=== PATIENT | female | born 1990 | race Hispanic/Latino ===

== ENCOUNTER 2016-12-21 13:59 | Inpatient (IN) | payer OTHER ==
[2016-12-21 14:37] VITALS: BMI 44.5
[2016-12-21] MEDS ORDERED: Ondansetron HCl/PF 4 MG/2 ML Vial IVP PRN (14:50)
[2016-12-21] MEDS ORDERED: Promethazine HCl 25 MG/ML VIAL IM PRN (14:50)
[2016-12-21] MEDS: Labetalol HCl 100 MG/20 ML VIAL SLOW IVP PRN ×2 (15:04→15:55)
[2016-12-21] MEDS ORDERED: Magnesium Sulfate 20 GM/WATER 500 ML BAG IVPB SCH (15:15)
[2016-12-21 15:20] LABS: Hematocrit 40.1 % (36.0-47.0); Mean Platelet Volume 9.3 fL (7.4-10.4); White Blood Cell (WBC) Count 10.1 thou/uL (4.8-10.8)
[2016-12-21 15:23] LABS: ALT (SGPT) 14 U/L (8-55); AST (SGOT) 21 U/L (5-34); Alkaline Phosphatase 179 U/L (40-150); Anion Gap 12 mmol/L (10-20); BUN (Urea Nitrogen) 10 mg/dL (7.0-18.7); Bilirubin, Total 0.2 mg/dL (0.2-1.2); Calc. Creatinine Clearance 258 mL/min (70-130); Calcium 8.9 mg/dL (7.8-10.44); Carbon Dioxide 20 mmol/L (22-29); Chloride 109 mmol/L (98-107); Estimated GFR-MDRD Greater than 90; Protein, Total 5.8 g/dL (6.0-8.3)
[2016-12-21] MEDS ORDERED: NIFEdipine XL 30 MG TAB PO SCH (15:30)
--- NOTE | 2016-12-21 16:25 | ULT ---
OBSTETRICAL ULTRASOUND UMBILICAL ARTERIAL DOPPLER ULTRASOUND BIOPHYSICAL PROFILE: DATE: 12/21/16. COMPARISON: 09/17/16. HISTORY: -induced hypertension. TECHNIQUE: Multiplanar, hudson scale, sonographic imaging of a gravid uterus obtained. Umbilical artery is asses sed with color flow and spectral analysis. FINDINGS: A single intrauterine gestation is present with a vertex presentation. Cervical length is approxima tely 4.2 cm. heart rate is 158 b.p.m. Placenta is located anteriorly with no evidence for previa or abruption. Umbilical arterial Doppler is performed, demonstrating a resistive index of 0.6 and a systolic/diast olic ratio of 2.5. Peak systolic velocity is 45.7 cm/s. Amniotic fluid index is estimated at 15.1%. anatomy is not well assessed on this examination. Intracranial contents are not well assessed secondary to head position. Positioning of the spine limits assessment as well. urinary bladder appears grossly unremarkable. A 3-vessel cord is noted. BIOMETRY: BPD 8.1 cm, 32 weeks 5 days HC 30 cm, 33 weeks 2 days AC 29.3 cm, 33 weeks 2 days FL 6.4 cm, 33 weeks 0 days Average based on ultrasound 33 weeks 1 day. Estimated date of delivery of deliver is 02/07/17. Est imated weight is 2128 gm +/- 315 gm. BIOPHYSICAL PROFILE: The performing fabrication technician reports a 2 out of 2 score for tone, breathing, movemen t, and amniotic fluid volume. IMPRESSION: 1. Single intrauterine gestation as detailed above. anatomy assessment is limited. 2. Umbilical arterial Doppler as above. 3. Eight out of 8 biophysical profile. POS: [facility]
[2016-12-21] MEDS: Magnesium Sulfate 20 gm/500 ml 20 GM/500 ML BAG IVPB SCH (16:43)
[2016-12-21] MEDS: Betamet Acet/Betamet Na Ph 30 MG/5 ML VIAL IM SCH (16:54)
[2016-12-21] MEDS ORDERED: Acetaminophen 500 MG TAB PO SCH ×2 (17:15→21:15)
[2016-12-21] MEDS: Labetalol HCl 100 MG/20 ML VIAL SLOW IVP SCH (17:55)
[2016-12-21] MEDS ORDERED: FLU VACC QS2017-18 36 mo. & older 0.5 ML SYRINGE IM ONE (21:00)
[2016-12-22] MEDS: Magnesium Sulfate 20 gm/500 ml 20 GM/500 ML BAG IVPB SCH ×3 (00:56→21:53)
[2016-12-22 08:08] LABS: #Lymphocytes 1.9 thou/uL (1.20-3.40); #Monocytes 0.2 thou/uL (0.11-0.59); %Basophils 0.3 % (0.0-1.0); %Eosinophils 0.1 % (0.0-10.0); %Lymphocytes 17.4 % (21.0-51.0); %Monocytes 1.4 % (0.0-10.0); Hematocrit 39.4 % (36.0-47.0); Mean Platelet Volume 9.4 fL (7.4-10.4); Red Blood Cell (RBC) Count 4.32 mill/uL (4.20-5.40); White Blood Cell (WBC) Count 11.1 thou/uL (4.8-10.8)
--- NOTE | 2016-12-22 08:09 | PRG ---
DATE OF SERVICE: 12/22/2016 HISTORY OF PRESENT ILLNESS: The patient is a 26-year-old G1, P0 female admitted for chronic hyperte nsion, superimposed preeclampsia at 33 weeks and a day. The patient was placed on magnesium and giv en multiple doses of IV medication in an attempt to bring her blood pressures down from the 190s. O xavier the course of the evening and morning, blood pressures have primarily in the mild range with iso lated severe ranged pressures. She has required a dose of hydralazine this morning at about 6 and s melissa then about 10 hours previous. The patient this morning denies any headaches, any shortness of breath, any right upper quadrant tenderness. PHYSICAL EXAMINATION: VITAL SIGNS: Blood pressures again ranging 140s to 150s with isolated severe range pressures into t he 160s, diastolic pressures are in the 60s-80s, heart rate in the low 100s, temperature is 97.6. GENERAL: She appears to be in no acute distress. She is alert and oriented, and cooperative and pl easant to interact with. HEAD: Normocephalic and atraumatic. LUNGS: Clear to auscultation bilaterally. HEART: Has regular rate and rhythm. ABDOMEN: Soft and gravid. EXTREMITIES: Nontender. She has minimal reflexes. Urine output has been consistently 40-75 mL an hour. ASSESSMENT AND PLAN: The patient is 26-year-old female with intrauterine at 33 weeks with chronic hypertension, superimposed preeclampsia. The patient will continue on magnesium today with IV hydralazine p.r.n. She is also on Procardia-XL 30 mg daily. She is due for her second dose of betamethasone for lung maturity today and will continue magnesium until tomorrow at which time we will be discontinued and we will continue to manage with the patient inhouse with hope for mariposasujey wiley outside 1 week. She has repeat labs this morning that are pending. Dr. Balderas, her primary OB wi ll be resuming care today and will be happy to assist in any way we can.
[2016-12-22 08:23] LABS: ALT (SGPT) 11 U/L (8-55); AST (SGOT) 19 U/L (5-34); Alkaline Phosphatase 172 U/L (40-150); Anion Gap 14 mmol/L (10-20); BUN (Urea Nitrogen) 10 mg/dL (7.0-18.7); Bilirubin, Total 0.3 mg/dL (0.2-1.2); Calc. Creatinine Clearance 249 mL/min (70-130); Calcium 8.2 mg/dL (7.8-10.44); Carbon Dioxide 17 mmol/L (22-29); Chloride 104 mmol/L (98-107); Estimated GFR-MDRD Greater than 90; Globulin 3.4 g/dL (2.4-3.5); Protein, Total 6.4 g/dL (6.0-8.3)
[2016-12-22] MEDS: NIFEdipine XL 30 MG TAB PO SCH (09:11)
--- NOTE | 2016-12-22 10:09 | CON ---
DATE OF CONSULTATION: 12/21/2016 REFERRING PHYSICIAN: Dr. Sukh Balderas. CHIEF COMPLAINT: Elevated blood pressures. HISTORY OF PRESENT ILLNESS: The patient is a 26-year-old G1, P0 female who was sent from clinic to labor and delivery after having blood pressures in the 160s to 170s systolic and was sent here for evaluation. The patient upon presentation denied any symptomatology including headache, right upper quadrant tenderness, shortness of breath, cramping, bleeding, and leakage of fluid. She denies any recent illness, fever, fall, headache, chest pain, shortness of breath, nausea, vomiting, diarrhea, constipation, any hip problems, knee problems, muscle weakness, any urinary urgency. The patient does have a probable history of chronic hypertension and had some elevated pressures early on in the and per the patient had reported elevated pressures prior with another provider. PAST MEDICAL HISTORY: Chronic hypertension. PAST SURGICAL HISTORY: None. ALLERGIES: No known drug allergies. SOCIAL HISTORY: Denies drug, alcohol or tobacco use. OB LABORATORY DATA: Blood type O positive with a negative antibody screen. She is rubella immune, HIV is negative. Hepatitis B surface antigen is negative. One hour glucose 108. GC chlamydia negative. REVIEW OF SYSTEMS: Per HPI. PHYSICAL EXAMINATION: VITAL SIGNS: Blood pressures initially on presentation were in the 170s to 200s /110s. Patient received a total of 120 mg of IV labetalol and 5 mg of IV hydralazine and 30 mg of p.o. Procardia before pressures stabilized after which the patient is only need another dose of Apresoline this morning since her admission. GENERAL: On initial presentation, patient was alert and oriented, cooperative and pleasant to interact with. HEAD: Normocephalic, atraumatic. LUNGS: Clear to auscultation bilaterally. HEART: Has regular rate and rhythm. ABDOMEN: Soft, gravid. EXTREMITIES: Nontender. She does have some edema, but normal reflexes and no clonus. LABORATORY DATA: heart tracing performed for elevated blood pressure showed baseline in the 130s with moderate long-term variability, positive accelerations, no decelerations, and no contractions on the tocometer. Lab work was significant only for proteinuria and a protein to creatinine ratio of about 2. ultrasound was performed and the fetus was noted to be in vertex presentation with amniotic ROSALIE of 15 and an 8/8 biophysical profile and estimated weight of 2128 grams, which is appropriate for gestational age. ASSESSMENT AND PLAN: The patient is a 26-year-old female with intrauterine at 33 weeks and chronic hypertension with superimposed preeclampsia based on severe range blood pressures and new onset of significant proteinuria. The patient has been placed on magnesium for seizure prophylaxis and has been given betamethasone for lung maturity and has required multiple doses of IV blood pressure medication over the course of the evening. Patient is now stabilized on Procardia-XL 30 mg daily and as needed IV hydralazine on a rare occasion since stabilization. Her primary OB, Dr. Sukh Balderas will be resuming care of her patient, Ms. Paniagua. We will be available for assistance as needed. Would recommend to continue magnesium through steroid benefit which would put her in the hospital day 3, 24 hours after the second dose of betamethasone and inhouse management if possible for a week before delivery. [facility]
[2016-12-22] MEDS ORDERED: Acetaminophen 500 MG TAB PO SCH (10:15)
[2016-12-22] MEDS: Lactated Ringer's 1,000 ML IV SCH (15:31)
[2016-12-22] MEDS: Betamet Acet/Betamet Na Ph 30 MG/5 ML VIAL IM SCH (17:10)
[2016-12-22 17:22] LABS: Collection Duration 24 hrs
[2016-12-22 17:56] LABS: Protein - 24 Hr 1197 mg/24 hr (Less than 300); Protein, Urine 57 mg/dL (1-14)
[2016-12-22] MEDS: Acetaminophen 500 MG TAB PO PRN (18:19)
[2016-12-22] MEDS: Labetalol HCl 100 MG/20 ML VIAL SLOW IVP SCH (21:51)
[2016-12-23] MEDS: Lactated Ringer's 1,000 ML IV SCH ×2 (04:37→18:21)
[2016-12-23] MEDS: NIFEdipine XL 30 MG TAB PO SCH (08:07)
[2016-12-23] MEDS: Magnesium Sulfate 20 gm/500 ml 20 GM/500 ML BAG IVPB SCH ×2 (08:07→18:21)
[2016-12-23] MEDS: Labetalol HCl 100 MG TAB PO SCH (08:46)
[2016-12-23 09:27] LABS: #Monocytes 0.5 thou/uL (0.11-0.59); #Neutrophils 7.6 thou/uL (1.40-6.50); %Basophils 0.2 % (0.0-1.0); %Eosinophils 0.3 % (0.0-10.0); %Lymphocytes 19.7 % (21.0-51.0); %Monocytes 4.5 % (0.0-10.0); Hematocrit 37.6 % (36.0-47.0); Mean Platelet Volume 8.9 fL (7.4-10.4); Red Blood Cell (RBC) Count 4.03 mill/uL (4.20-5.40); White Blood Cell (WBC) Count 10.1 thou/uL (4.8-10.8)
[2016-12-23 09:42] LABS: ALT (SGPT) 16 U/L (8-55); AST (SGOT) 25 U/L (5-34); Alkaline Phosphatase 151 U/L (40-150); Anion Gap 15 mmol/L (10-20); BUN (Urea Nitrogen) 14 mg/dL (7.0-18.7); Bilirubin, Total 0.3 mg/dL (0.2-1.2); Calc. Creatinine Clearance 249 mL/min (70-130); Calcium 7.5 mg/dL (7.8-10.44); Carbon Dioxide 17 mmol/L (22-29); Chloride 106 mmol/L (98-107); Estimated GFR-MDRD Greater than 90; Globulin 3.2 g/dL (2.4-3.5); Protein, Total 5.9 g/dL (6.0-8.3)
[2016-12-23] MEDS: Acetaminophen 500 MG TAB PO PRN (12:42)
[2016-12-23] MEDS ORDERED: Furosemide 20 MG/2 ML VIAL SLOW IVP SCH (20:00)
[2016-12-23] MEDS: Labetalol HCl 100 MG/20 ML VIAL SLOW IVP SCH (20:00)
[2016-12-23] MEDS ORDERED: Fentanyl 4 mcg/Marc 0.1% Cadd 100 ML ONE (20:48)
[2016-12-23] MEDS: LR 500 ML/Oxytocin 10 units 500 ML IVPB SCH (23:32)
[2016-12-24] MEDS: Labetalol HCl 100 MG TAB PO SCH ×3 (00:32→20:46)
[2016-12-24] MEDS: Labetalol HCl 100 MG/20 ML VIAL SLOW IVP SCH ×6 (01:51→14:31)
[2016-12-24] MEDS ORDERED: Hydrocerin (Eucerin) Cream 120 gm Jar TOP PRN (03:01)
[2016-12-24] MEDS ORDERED: Ondansetron HCl/PF 4 MG/2 ML Vial IVP PRN ×4 (03:01→11:37)
[2016-12-24] MEDS ORDERED: Lactated Ringer's 500 ML IV PRN (03:01)
[2016-12-24] MEDS ORDERED: Promethazine HCl 25 MG/ML VIAL IM PRN ×3 (03:01→11:37)
[2016-12-24] MEDS ORDERED: Naloxone HCl 0.4 mg/ml Vial IVP PRN ×6 (03:01→11:37)
[2016-12-24] MEDS ORDERED: ePHEDrine/0.9% NaCl/PF SYRINGE 50 mg/10 ml SLOW IVP PRN (03:01)
[2016-12-24] MEDS ORDERED: diphenhydrAMINE HCl 50 MG/ML 1 ML VIAL IVP PRN ×3 (03:01→11:37)
[2016-12-24] MEDS ORDERED: Acetaminophen 325 MG TAB PO PRN (03:01)
[2016-12-24] MEDS ORDERED: Fentanyl 4mcg/Marcaine 0.1% Cassette 100 ML EPIDURAL SCH (03:15)
[2016-12-24] MEDS ORDERED: Communication Order-Pharmacy FS SCH ×4 (03:15→11:45)
[2016-12-24] MEDS: Magnesium Sulfate 20 gm/500 ml 20 GM/500 ML BAG IVPB SCH ×3 (04:30→23:39)
[2016-12-24] MEDS ORDERED: Naloxone HCl 0.4 mg/ml Vial IV PRN (08:24)
[2016-12-24] MEDS ORDERED: Meperidine HCl/PF 25 MG/ML VIAL SLOW IVP PRN (08:24)
[2016-12-24] MEDS ORDERED: Eucerin (Mineral Oil/Petrolatum,White) 30 gm Jar TOP PRN ×2 (08:24→11:37)
[2016-12-24] MEDS ORDERED: HYDROmorphone 2 MG/ML VIAL SLOW IVP PRN (08:24)
[2016-12-24] MEDS ORDERED: Promethazine HCl 25 MG SUPP PR PRN ×2 (08:24→11:37)
[2016-12-24] MEDS ORDERED: Ketorolac Tromethamine 30 MG/ML VIAL IVP SCH (08:30)
[2016-12-24] MEDS ORDERED: Ketorolac Tromethamine 30 MG/ML VIAL ONE (08:49)
[2016-12-24] MEDS ORDERED: Ondansetron HCl/PF 4 MG/2 ML Vial ONE (08:49)
[2016-12-24] MEDS ORDERED: Oxytocin 10 UNITS/ML VIAL ONE (08:49)
[2016-12-24] MEDS ORDERED: Lidocaine 2% PF 10 ML AMP (For Epidural Use) ONE (08:49)
[2016-12-24] MEDS ORDERED: ePHEDrine/0.9% NaCl/PF SYRINGE 50 mg/10 ml ONE (08:49)
[2016-12-24] MEDS ORDERED: Dexamethasone 4 mg/ml Vial ONE (08:49)
[2016-12-24] MEDS ORDERED: PHENYLEPHRINE-NS 100 MCG/ML 10 ML SYRINGE ONE (08:54)
--- NOTE | 2016-12-24 08:55 | PRG ---
DATE OF SERVICE: 12/24/2016 TIME OF EVALUATION: 08:30. PREOP NOTE In brief, this is a patient of Dr. Balderas who was consulted on approximately 10 minutes ago for a concern of presenting cord through the amniotic bag. In brief , this is a patient who has received steroids for lung maturity due to her EGA of about 33 weeks. She has chronic hypertension on antihypertensive medications normally, but she is now being induced for superimposed preeclampsia with elevated blood pressures requiring repetitive intrapartum antihypertensive agents. She is now 2 cm dilated. I was made aware this morning that at Dr. Balderas's exam, a palpable umbilical cord is felt through the intact amniotic sac transcervically. Once again, she is 2 cm. This is a risk for cord prolapse with either spontaneous or artificial rupture of membranes. As the cord is presenting, and if she has severe hypertension remote from delivery requiring antihypertensive medications, our decision was to proceed with primary . The station is cephalic on ultrasound, but the baby is in an extremely nonengaged/high station at about -4 to -5. Due to the risk of cord accident with umbilical cord presenting at the cervix, we have decided for primary . Dr. Yun with Anesthesiology is aware. We are waiting OR availability. NICU notification. Preop DX: 1. Cord presenting 2. Severe Preeclampsia remote from delivery 3. Chronic hypertension 4. 33 week gestation MTDD
[2016-12-24] MEDS ORDERED: Bupivacaine 0.25% HCL 30 ML VIAL ONE (09:50)
[2016-12-24 10:01] LABS: CO2 Tension (PaCO2) 56.7 mmHg (44.0-56.0)
--- NOTE | 2016-12-24 10:46 | OP ---
DATE OF PROCEDURE: 12/24/2016 PRIMARY SECTION NOTE PREOPERATIVE DIAGNOSES: 1. Chronic hypertension with superimposed preeclampsia. 2. Umbilical cord as presenting part. 3. 33 week gestation. POSTOPERATIVE DIAGNOSES: 1. Chronic hypertension with superimposed preeclampsia. 2. Status post primary low transverse via Pfannenstiel. PROCEDURE: Primary low transverse section via Pfannenstiel skin incision. SURGEON: Joby Portillo M.D. THIRD MATE: Dr. Sukh Balderas ANESTHESIA: Labor epidural. ANTIBIOTICS: Ancef given preoperatively. FINDINGS: 1. A female, cephalic presentation, which was non-engaged. Weight was 3 pounds 5 ounces. The umbilical cord was the presenting part by the baby's head. There was a nuchal cord x1 as well. There was clear fluid at rupture of membranes. 2. Hemostasis post-procedure. 3. Normal uterus, tubes, and ovaries bilaterally. ESTIMATED BLOOD LOSS: Less than or equal to 600 mL. IV FLUIDS: Approximately 400 mL crystalloid. URINE OUTPUT: By Ramirez, clear urine (please see Anesthesia record for volume). COMPLICATIONS: None. LABORATORY SPECIMENS: Laboratory specimens sent include an umbilical arterial cord gas and the plac enta. PEOPLE IN ATTENDANCE: NICU staff. DISPOSITION: To recovery in good and stable condition. TECHNIQUE: After proper informed consent was again reviewed with the patient, she was transported t Labor and Delivery operating room where she was placed in the supine position per protocol. Labor epidural had been dosed adequately. Abdomen was prepped and draped in the usual sterile fashion. A Pfannenstiel skin incision was made with the scalpel and Bovie cautery was used to dissect the sub cutaneous tissue down to the level of the fascia. Overlying fatty tissue was cleared off the fascia and the fascia was entered in a transverse manner using Bovie cautery on cut mode. Rectus muscles were off the fascia both superiorly and inferiorly and off the midline using Garcia scissors . Care was taken to avoid underlying structures. Rectus muscles were out laterally from the midline, peritoneum was entered by blunt dissection. An Jai (large O ring) was placed into t wound for visualization of the lower uterine segment. A low transverse hysterotomy was made with out complication. Amniotomy revealed clear fluid. The baby was delivered in a cephalic presentatio n. Due to the non-engaged status, fundal pressure and maneuvering of the child transabdominal ly was necessary to bring the child out of the hysterotomy. The baby was vigorous at . Cord w as clamped, transected, and the baby was handed to the NICU team who was present for delivery. Apga rs were 8 and 9. Placenta was gently massaged out of the uterine cavity and it was intact. A dry l aparotomy sponge was used to curettage the uterine cavity signifying the lack of any retained produc ts of conception. The hysterotomy was closed in a two-layer closure using #1 Monocryl. The first l jered was in a running locking fashion. Copious irrigation was done after uterine closure (uterus wa s left in situ for closure). After confirming all counts were correct, rectus muscles were reapprox imated in in the midline with a loose running suture of 3-0 plain gut. The fascia was closed with 0 PDS suture in a running nonlocking fashion with 2 sutures being used and being tied in the midline. Copious irrigation was done of the subcutaneous tissue and as it was greater than 2 cm it was clos ed with 3-0 plain gut. Datil were placed on the wound/skin edges without complication.
[2016-12-24] MEDS ORDERED: Meperidine HCl/PF 25 MG/ML VIAL ONE (10:57)
[2016-12-24] MEDS ORDERED: HYDROcodone/Acetaminophen 5/325 mg Tablet PO PRN (11:09)
[2016-12-24] MEDS: Furosemide 20 MG/2 ML VIAL SLOW IVP SCH ×3 (11:33→23:39)
[2016-12-24] MEDS ORDERED: Bupivacaine 0.25% 10 ML VIAL EPIDURAL PRN (11:37)
[2016-12-24] MEDS ORDERED: Zolpidem Tartrate 5 MG TAB PO PRN (11:37)
[2016-12-24] MEDS ORDERED: diphenhydrAMINE HCl 25 MG CAP PO PRN (11:37)
[2016-12-24] MEDS ORDERED: diphenhydrAMINE HCl 50 MG/ML 1 ML VIAL IM PRN (11:37)
[2016-12-24] MEDS ORDERED: Fentanyl 5 MCG/ 0.75% Bupivacaine 250 ML CADD EPIDURAL SCH (11:45)
[2016-12-24] MEDS: NIFEdipine XL 30 MG TAB PO SCH (12:12)
[2016-12-24] MEDS ORDERED: Labetalol HCl 100 MG/20 ML VIAL ONE (14:27)
[2016-12-24] MEDS ORDERED: Metoprolol Tartrate 5 MG/5 ML VIAL IVP PRN (14:30)
--- NOTE | 2016-12-24 14:37 | PRG ---
DATE OF SERVICE: 12/24/2016 TIME: 1404 /POSTOP HYPERTENSION NOTE In brief, I have just reviewed the patient's blood pressures with Bridget, the patient's nurse. The patient has adequate pain control as she is resting in recovery. However, her blood pressure since 1332, has remained severely elevated with a range of 189/77 to a high of 197/80. Pulse is in the 80 s. Spot O2 check on room air is 94. The patient has received hydralazine alternating with labetalo l. The last dose of hydralazine (5 mg) was at 1351. Labetalol has been given in sequential dosages from 40 mg, 80 mg to 120 mg. The last dose of labetalol was at 1320. I have just ordered a repeat dose of 40 mg due to this blood pressure elevation. She has also received oral labetalol and oral nifedipine. Nifedipine was last given at 12:12 at 30 mg orally. The patient has also been given La six with the next dose being at 1800. We will continue to follow the patient's blood pressures at t his time and if this does not result in improvement, we may consider IV labetalol for hypertension t hat is emergent.
--- NOTE | 2016-12-24 16:34 | PRG ---
ANESTHESIA PHONE CONSULTATION DATE OF SERVICE: 12/24/2016 TIME: 14:18 In brief, I just talked with Dr. Yun as an informal consultation on Ms. Paniagua. Dr. Yun was the anesthesiologist who assisted with a earlier today. I have reviewed with him the blood pressures. He suggested adding IV metoprolol 5 mg every 20 minutes for 3 dosages, the labetalol due to the blood pressure. He agrees that her blood pressure control is not adequate. On this multidrug medical therapy, she may need nitroprusside IV for blood pressure support and transferred to the ICU. For now, we will continue to follow closely and try this metoprolol additional regimen as a PRN option. CORINNED
--- NOTE | 2016-12-24 16:38 | PRG ---
DATE OF SERVICE: 12/24/2016 ICU CONSULTATION TIME: 14:05. In brief, I just talked with Dr. Mullen, who was on-call for the ICU today. I discussed with him Sigrid Paniagua's blood pressures and the multi-medical regimen she has been on. I informed him that we have just started metoprolol as suggested by Anesthesiology. He agrees that if the blood pressure remained severely elevated despite metoprolol addition, she may need to be transferred to the ICU fo r nicardipine drip. I let him know by secured message if we plan to transfer her to the ICU for blo od pressure support on nicardipine.
--- NOTE | 2016-12-24 17:54 | PRG ---
HYPERTENSION FOLLOWUP DATE OF SERVICE: 12/24/2016 TIME OF EVALUATION: 1618 In brief, this is a patient that we have been following for severely elevated blood press ures. Previously, I had dictated that we were going to give metoprolol 5 mg IV q.20 minutes for 3 d osages at the suggestion of our anesthesiologist, Dr. Yun. However, the patient has not received any as her blood pressure has greatly reduced now. Her blood pressure at 1602 was 136/56 and at 16 18 was 141/70. I have also reviewed her bowel sign graph with Bridget, the patient's nurse. Pulse r emains stable in the 90s. I have also dictated in the last note that she was 99% on room air that a ctually must be corrected. That was on 2 liters nasal cannula. Her O2 sat currently remained at 94 %. Magnesium sulfate is still in use. She still has continuous order for Lasix for blood pressure support. We will continue to follow for now. For now, the patient is stable postoperatively from a this morning. Dr. Balderas is still following the patient as well.
[2016-12-24] MEDS ORDERED: LR / Pitocin 40 units/1000 ml 1,000 ML IV SCH (18:00)
[2016-12-24] MEDS: Ketorolac Tromethamine 30 MG/ML VIAL IVP PRN (22:26)
[2016-12-25] MEDS: Furosemide 20 MG/2 ML VIAL SLOW IVP SCH ×2 (06:24→12:46)
[2016-12-25] MEDS: Ketorolac Tromethamine 30 MG/ML VIAL IVP PRN (07:54)
[2016-12-25] MEDS: Lactated Ringer's 1,000 ML IV SCH (07:58)
[2016-12-25 08:52] LABS: #Basophils 0.1 thou/uL (0.0-0.2); #Eosinphils 0.1 thou/uL (0.0-0.7); #Lymphocytes 3.1 thou/uL (1.20-3.40); #Monocytes 0.7 thou/uL (0.11-0.59); #Neutrophils 8.7 thou/uL (1.40-6.50); %Basophils 0.5 % (0.0-1.0); %Eosinophils 0.5 % (0.0-10.0); %Lymphocytes 24.7 % (21.0-51.0); %Monocytes 5.6 % (0.0-10.0); Hematocrit 37.8 % (36.0-47.0); Mean Platelet Volume 8.3 fL (7.4-10.4); Red Blood Cell (RBC) Count 4.05 mill/uL (4.20-5.40); White Blood Cell (WBC) Count 12.7 thou/uL (4.8-10.8)
[2016-12-25 09:14] LABS: ALT (SGPT) 17 U/L (8-55); AST (SGOT) 42 U/L (5-34); Alkaline Phosphatase 143 U/L (40-150); Anion Gap 15 mmol/L (10-20); BUN (Urea Nitrogen) 21 mg/dL (7.0-18.7); Bilirubin, Total 0.4 mg/dL (0.2-1.2); Calc. Creatinine Clearance 205 mL/min (70-130); Calcium 7.2 mg/dL (7.8-10.44); Carbon Dioxide 23 mmol/L (22-29); Chloride 99 mmol/L (98-107); Estimated GFR-MDRD Greater than 90; Globulin 3.2 g/dL (2.4-3.5); Protein, Total 6.1 g/dL (6.0-8.3)
[2016-12-25] MEDS: Labetalol HCl 100 MG TAB PO SCH (09:17)
[2016-12-25] MEDS: Magnesium Sulfate 20 gm/500 ml 20 GM/500 ML BAG IVPB SCH (09:47)
[2016-12-25] MEDS: NIFEdipine XL 30 MG TAB PO SCH (09:48)
[2016-12-25] MEDS ORDERED: HYDROcodone/Acetaminophen 5/325 mg Tablet PO PRN ×2 (10:02→10:03)
[2016-12-25] MEDS ORDERED: Ibuprofen 800 MG TAB PO PRN (10:03)
[2016-12-25] MEDS ORDERED: Calcium Gluconate 4.6 MEQ in Sodium Chloride 0.9% 100 ML IVPB PRN (13:33)
[2016-12-25] MEDS ORDERED: diphenhydrAMINE HCl 25 MG CAP PO PRN (13:33)
[2016-12-25] MEDS ORDERED: Lanolin Ointment 7 GM TUBE TOP PRN (13:33)
[2016-12-25] MEDS ORDERED: Ondansetron HCl/PF 4 MG/2 ML Vial IVP PRN (13:33)
[2016-12-25] MEDS ORDERED: Bisacodyl 10 MG SUPP PR PRN (13:33)
[2016-12-25] MEDS: Ibuprofen 800 MG TAB PO SCH ×2 (14:54→21:07)
[2016-12-25] MEDS: Simethicone Chewable 80 MG TAB PO PRN (14:54)
[2016-12-25] MEDS: HYDROcodone/Acetaminophen 5/325 mg Tablet PO PRN ×3 (14:55→23:49)
[2016-12-25] MEDS ORDERED: Lidocaine 2% PF 10 ML AMP (For Epidural Use) ONE (18:33)
[2016-12-25] MEDS: Docusate (Surfak) 240 MG CAP PO SCH (19:49)
[2016-12-25] MEDS: Ferrous Sulfate 325 MG TAB PO SCH (22:11)
[2016-12-26] MEDS: HYDROcodone/Acetaminophen 5/325 mg Tablet PO PRN ×5 (04:31→21:08)
[2016-12-26] MEDS: Ibuprofen 800 MG TAB PO SCH ×3 (04:31→21:08)
[2016-12-26 04:57] LABS: Hematocrit 33.2 % (36.0-47.0); Mean Platelet Volume 9.2 fL (7.4-10.4); Red Blood Cell (RBC) Count 3.53 mill/uL (4.20-5.40); White Blood Cell (WBC) Count 13.3 thou/uL (4.8-10.8)
[2016-12-26] MEDS: Docusate (Surfak) 240 MG CAP PO SCH ×2 (08:02→21:08)
[2016-12-26] MEDS: Ferrous Sulfate 325 MG TAB PO SCH ×2 (08:02→21:07)
[2016-12-26] MEDS ORDERED: Adacel (T-DAP) 0.5 ML VIAL IM ONE (09:00)
--- NOTE | 2016-12-26 14:13 | PRG ---
DATE OF SERVICE: 12/26/2016 PRIMARY OB: Sukh Balderas M.D. HISTORY OF PRESENT ILLNESS: The patient is now postoperative day #2, status post primary for nonreassuring heart tones with umbilical cord is presenting for 33 weeks gestation and chr onic hypertension, superimposed preeclampsia and patient today reports that she is tolerating p.o. w ell, is ambulating, voiding on her own, having decreased lochia. PHYSICAL EXAMINATION: VITAL SIGNS: Vital signs have been primarily in the normal to mild range last 24 hours with the mos t recent blood pressure 147/77, temperature 98.5, pulse is 75, respiratory rate of 18, satting 98% o n room air. GENERAL: She appears to be in no acute distress. She is alert and oriented, and cooperative and pl easant to interact with. HEENT: Normocephalic, atraumatic. ABDOMEN: Soft. Incision is clean, dry, and intact. There is no induration or erythema. Abbi a re in place. EXTREMITIES: Nontender, nonedematous. LABORATORY DATA: Hemoglobin 11.2, hematocrit 33.2, platelets of 220,000. ASSESSMENT AND PLAN: The patient is now postoperative day #2, status post a primary lower transvers e section. She is status post [facility] for seizure prophylaxis the first 24 hours post-delivery . Blood pressures appear to be under good control with current oral medication of metoprolol XL 100 mg daily. We will continue postoperative care with anticipation of discharge tomorrow if her blood pressures remain under good control.
[2016-12-26] MEDS ORDERED: Sodium Chloride 0.9% 10 ML ONE ×2 (21:40→22:13)
[2016-12-26] MEDS ORDERED: Furosemide 40 MG/4 ML VIAL SLOW IVP SCH (22:00)
[2016-12-27] MEDS: Simethicone Chewable 80 MG TAB PO PRN (02:15)
[2016-12-27] MEDS: HYDROcodone/Acetaminophen 5/325 mg Tablet PO PRN ×5 (02:15→20:08)
[2016-12-27] MEDS ORDERED: Sodium Chloride 0.9% 10 ML ONE ×2 (02:31→23:10)
[2016-12-27] MEDS: Ibuprofen 800 MG TAB PO SCH ×2 (05:53→17:18)
[2016-12-27] MEDS: Docusate (Surfak) 240 MG CAP PO SCH ×2 (07:35→20:08)
--- NOTE | 2016-12-27 12:18 | PRG ---
DATE OF SERVICE: 12/27/2016 HISTORY OF PRESENT ILLNESS: The patient is postoperative day 3 status post a primary lower transver se section for malpresentation of a cord and chronic hypertension with superimposed preecla mpsia with severe features. Her course has been complicated with some difficulty with he r blood pressures. In the last 24 hours, she has received a dose of Lasix 40 mg IV and 10 mg of hyd ralazine in addition to her 100 mg daily of metoprolol XL. The patient denies any headaches, shortn ess of breath. She is ambulating well, tolerating p.o., voiding on her own, having decreased lochia . OBJECTIVE: VITAL SIGNS: Current blood pressure is 137/81, pulse of 87, temperature 98.6 with a respiratory rat e of 20. Her blood pressure high was 196/102 that resolved with 10 mg of hydralazine. She has had several blood pressures last 24 hours above 180s and the 190s. GENERAL: She appears to be in no acute distress. She is alert and oriented, and cooperative and pl easant to interact with. HEENT: Normocephalic, atraumatic. ABDOMEN: Soft. Fundus is firm with some difficult to examine by habitus. EXTREMITIES: Nontender, nonedematous. ASSESSMENT AND PLAN: The patient will continue to be monitored in-house for blood pressure control. Her primary OB has put her on 100 mg of metoprolol daily and has required multiple IV intervention s since her period began. I will monitor through the day today and anticipate discharge once she has been with mild range pressures for 24 hours.
[2016-12-27] MEDS: Ferrous Sulfate 325 MG TAB PO SCH ×2 (12:21→22:40)
[2016-12-27] MEDS ORDERED: Preparation H Ointment 28 GM TUBE TOP PRN (17:46)
[2016-12-27] MEDS ORDERED: Witch Hazel-Glycerin 1 EACH JAR TOP PRN (17:46)
[2016-12-28] MEDS: HYDROcodone/Acetaminophen 5/325 mg Tablet PO PRN ×4 (01:30→18:56)
[2016-12-28] MEDS: Docusate (Surfak) 240 MG CAP PO SCH (08:01)
[2016-12-28] MEDS: Ferrous Sulfate 325 MG TAB PO SCH (08:01)
[2016-12-28] MEDS: Lactated Ringer's 1,000 ML IV SCH (10:14)
[2016-12-28 16:11] VITALS: BP 166/98; TEMP 99.1
== END 2016-12-28 19:00 | disposition home or self-care (01) | DRG 766 ==
LOC: L&D/OP 13:59 → L&D 16:49 → OBSVTOIN 16:49 → 3SW 12-25 14:49
PROVIDERS: ADMIT Family Medicine; ATTEND Family Medicine
PROC: 0U7C7ZZ Dilation of Cervix, Via Natural or Artificial Opening (ICD-10-PCS; 2016-12-23)
PROC: 10D00Z1 Extraction of Products of Conception, Low, Open Approach (ICD-10-PCS; principal; 2016-12-24)
DX: O11.4 Pre-existing hypertension with pre-eclampsia, complicating childbirth (principal); O60.14X0 Preterm labor third trimester with preterm delivery third trimester, not applicable or unspecified; O76 Abnormality in fetal heart rate and rhythm complicating labor and delivery; O69.0XX0 Labor and delivery complicated by prolapse of cord, not applicable or unspecified; Z37.0 Single live birth; O10.02 Pre-existing essential hypertension complicating childbirth; Z23 Encounter for immunization; O69.81X0 Labor and delivery complicated by cord around neck, without compression, not applicable or unspecified; Z3A.33 33 weeks gestation of pregnancy; O11.5 Pre-existing hypertension with pre-eclampsia, complicating the puerperium; O10.03 Pre-existing essential hypertension complicating the puerperium
CPT/HCPCS: 36415; 76805; 76815; 80053; 82570; 82805; 83735; 84156; 85025; 85027; 86780; 86850; 86900; 86901; 87340; 88307; 90471; 90682; 90715; A4216; C1726; G0008; J0360; J0702; J1100; J1885; J1940; J2001; J2175; J2274; J2405; J2590; J3475; J7120; Q2036; S0020

== ENCOUNTER 2018-01-06 10:13 | Day surgery (SDC) | payer OTHER ==
[2018-01-06 10:56] VITALS: BMI 46.5
[2018-01-06 11:15] LABS: #Basophils 0.1 thou/uL (0.0-0.2); #Eosinphils 0.1 thou/uL (0.0-0.7); #Lymphocytes 2.4 thou/uL (1.20-3.40); #Monocytes 0.4 thou/uL (0.11-0.59); #Neutrophils 5.9 thou/uL (1.40-6.50); %Basophils 0.6 % (0.0-1.0); %Eosinophils 1.2 % (0.0-10.0); %Neutrophils 66.2 % (42.0-75.0); Hemoglobin 13.4 g/dL (12.0-16.0); Mean Corpuscular HGB CONC 33.8 g/dL (32.0-36.0); Mean Corpuscular Hemoglobin 31.7 pg (27.0-31.0); Mean Corpuscular Volume 93.6 fL (78.0-98.0); Mean Platelet Volume 9.8 fL (7.4-10.4); Platelet Count 222 thou/uL (130-400); RBC Distribution Width 12.5 % (11.5-14.5); Red Blood Cell (RBC) Count 4.22 mill/uL (4.20-5.40); White Blood Cell (WBC) Count 8.9 thou/uL (4.8-10.8)
[2018-01-06 11:34] LABS: ALT (SGPT) 17 U/L (8-55); AST (SGOT) 27 U/L (5-34); Albumin 2.9 g/dL (3.5-5.0); Alkaline Phosphatase 161 U/L (40-150); Anion Gap 10 mmol/L (10-20); BUN (Urea Nitrogen) 9 mg/dL (7.0-18.7); Bilirubin, Total 0.3 mg/dL (0.2-1.2); Calc. Creatinine Clearance 253 mL/min (70-130); Calcium 8.7 mg/dL (7.8-10.44); Carbon Dioxide 18 mmol/L (22-29); Chloride 110 mmol/L (98-107); Estimated GFR-MDRD Greater than 90; Globulin 3.1 g/dL (2.4-3.5); Glucose 93 mg/dL (70-105); LDH 154 U/L (125-220); Potassium 4.2 mmol/L (3.5-5.1); Sodium 134 mmol/L (136-145); Uric Acid 5.5 mg/dL (2.6-6.0)
[2018-01-06 12:10] LABS: Bilirubin Small (Negative); Blood, Urine Negative (Negative); Clarity CLOUDY (Clear); Glucose, Urine (Dipstick) Negative (Negative); Leukocyte Small (Negative); Nitrite Negative (Negative); Protein, Urine (Dipstick) 30 mg/dL (Neg-Trace); Specific Gravity, Urine 1.026 (1.002-1.036); pH, Urine 6.5 (5.0-9.0)
[2018-01-06 12:35] LABS: Creatinine, Urine 163.56 mg/dL (47-110)
--- NOTE | 2018-01-06 12:41 | PDOC.LDPN ---
Labor & Delivery Progress Note - Subjective Subjective: other (Pt sent for BP evaluation due to severe BP in clinic. Denies any preE sx besides slight LE swelling. ) - Objective Abnormal vital signs: BP normal - mild range; all other VSS General: NAD Uterine fundus: non tender FHT: category 1 [place] contractions every: no ctx Other exam findings: CV RRR. Resp unlabored. DTRs wnl. Trace edema. - Assessment (1) Chronic hypertension affecting Code(s): O10.919 - UNSP PRE-EXISTING HTN COMP , UNSP TRIMESTER Status : Acute (2) 34 weeks gestation of Code(s): Z3A.34 - 34 WEEKS GESTATION OF Status: Acute -: Serial BP are mild range. No severe range BPs. Fetus reassuring, BPP 8/8 and LINDSAY 73%. Pre-eclampsia labs are wnl. Increase Labetalol to 300 mg BID. Continue to check BPs at home. Reviewed parameters with pt. RTC next week for OB appt and sono. PreE sx reviewed with pt.
--- NOTE | 2018-01-06 15:35 | ULT ---
OBSTETRIC SONOGRAM SONOGRAPHIC BIOPHYSICAL PROFILE EXAM: Date: 01/06/18 HISTORY: Preeclampsia. FINDINGS: Multiple transabdominal sonographic views of the gravid uterus show a single intrauterine gestation i n cephalic presentation. Cervix is obscured by the ossified cranium. No evidence of previa. Grade II placenta is on the maternal left. Advanced age limits anatomic detail. No gross intracranial ab normalities. Four chamber heart shows motion at 147 beats/minute. Three vessel cord is visualized. Amniotic fluid index is 7.9. Good movement, tone, and breathing movements were demonstrated. Measurements are as follows: BPD: 36 weeks/0 days HC: 35 weeks/6 days AC: 35 weeks/1 day FL: 34 weeks/6 days Estimated weight: 2629 gm (5 lbs 13 oz) Hadlock percentile: 73% IMPRESSION: 1. Single, viable intrauterine gestation. Estimated gestational age based on today's sonogram is 35 weeks/2 days. 2. Sonographic biophysical profile score 8/8. POS: [facility]
== END 2018-01-06 13:00 | disposition home or self-care (01) ==
LOC: L&D/OP 10:13
PROVIDERS: ATTEND Obstetrics & Gynecology
DX: O10.913 Unspecified pre-existing hypertension complicating pregnancy, third trimester (principal); Z3A.34 34 weeks gestation of pregnancy
CPT/HCPCS: 36415; 76805; 76819; 80053; 81003; 82570; 83615; 84156; 84550; 85025; 87081; 99283

== ENCOUNTER 2018-01-19 16:58 | Inpatient (IN) | payer OTHER ==
[~2018-01-19 16:58] MED LIST: Dexamethasone 20 MG/5 ML VIAL ONE; Ketorolac Tromethamine 30 MG/ML VIAL ONE; Ondansetron PF 4 MG/2 ML Vial ONE; PHENYLEPHRINE-NS 100 MCG/ML 10 ML SYRINGE ONE; diphenhydrAMINE 50 MG/ML VIAL ONE; ePHEDrine/0.9% NaCl/PF SYRINGE 50 mg/10 ml ONE
[2018-01-19] MEDS ORDERED: Ondansetron PF 4 MG/2 ML Vial IVP PRN ×2 (17:25→21:09)
[2018-01-19] MEDS ORDERED: Calcium Gluc 4.6 MEQ/10 ML (100 MG/ML) SLOW IVP PRN (17:25)
[2018-01-19] MEDS ORDERED: Betamet Acet/Betamet Na Ph 30 MG/5 ML VIAL IM SCH (17:30)
[2018-01-19] MEDS ORDERED: CEFAZOLIN 2 GM/50 ML BAG IVPB SCH (17:30)
[2018-01-19] MEDS ORDERED: Bicitra 30 ML UDCUP PO SCH (17:30)
[2018-01-19] MEDS ORDERED: Lactated Ringer's 1,000 ML IV SCH (17:30)
[2018-01-19] MEDS ORDERED: Magnesium Sulfate 20 GM/WATER 500 ML BAG IVPB SCH (17:30)
[2018-01-19] MEDS ORDERED: Labetalol HCl 100 MG/20 ML VIAL ONE (17:39)
[2018-01-19 17:43] VITALS: BMI 47.0
[2018-01-19] MEDS ORDERED: Labetalol HCl 100 MG/20 ML VIAL SLOW IVP PRN (17:48)
[2018-01-19 17:50] LABS: Hemoglobin 14.1 g/dL (12.0-16.0); Mean Corpuscular HGB CONC 34.1 g/dL (32.0-36.0); Mean Corpuscular Hemoglobin 31.6 pg (27.0-31.0); Mean Corpuscular Volume 92.7 fL (78.0-98.0); Mean Platelet Volume 9.4 fL (7.4-10.4); Platelet Count 262 thou/uL (130-400); RBC Distribution Width 12.6 % (11.5-14.5); Red Blood Cell (RBC) Count 4.45 mill/uL (4.20-5.40); White Blood Cell (WBC) Count 10.9 thou/uL (4.8-10.8)
--- NOTE | 2018-01-19 17:57 | PDOC.LDHP ---
Labor and Delivery H&P Chief complaint: other (BP evaluation from clinic) HPI: 27 yo @ 36w3d with CHTN on Labetalol 300 mg BID who presented to clinic with severe HTN and c/o h/a, concern for superimposed preE. Pt has H/O LTCS x1. Due date: 02/13/18 Dating criteria: first trimester ultrasound Grav: 2 Para: 1 OB History Details: 1 LTCS @ 33 weeks for severe preE Current complications: hypertension Abnormal US findings: No Past Medical History: CHTN Current medications: other (ASA, Labetalol 300 mg BID) Previous surgical history: low tranverse CS Allergies/Adverse Reactions: Allergies Allergy/AdvReac Type Severity Reaction Status Date / Time No Known Allergies Allergy Verified 01/06/18 10:52 Social history: none - Physical Exam Abnormal vital signs: Severe HTN on admission, improved with labetalol 20 mg IV , now starting mag General: NAD Heart: RRR Lungs: nonlabored breathing Abdomen: gravid Extremeties: trace edema FHT: category 1 (150s, mod wisam, +accels, no decels) [place] contractions every: nonw - OB Labs Blood type: O RH: positive Antibody Screen: negative HIV: negative RPR: negative HEPSAg: negative 1 hour GCT: negative GBS: negative Rubella: immune Additional Labs: APS work up negative AFP tetra negative - Assessment 36w3d IUP CHTN with superimposed preE H/O LTCS x1; Desires RCS - Plan Plan: admit to L&D, to OR for section, magnesium for seizure prophylaxis, anesthesia consult for pain management -: Pre-eclampsia protocol PRN IV anti-HTN
[2018-01-19] MEDS ORDERED: Labetalol HCl 100 MG/20 ML VIAL SLOW IVP SCH (18:00)
[2018-01-19 18:12] LABS: ALT (SGPT) 19 U/L (8-55); AST (SGOT) 36 U/L (5-34); Albumin 3.2 g/dL (3.5-5.0); Alkaline Phosphatase 205 U/L (40-150); Anion Gap 11 mmol/L (10-20); BUN (Urea Nitrogen) 14 mg/dL (7.0-18.7); Bilirubin, Total 0.5 mg/dL (0.2-1.2); Calc. Creatinine Clearance 235 mL/min (70-130); Calcium 9.3 mg/dL (7.8-10.44); Carbon Dioxide 19 mmol/L (22-29); Chloride 108 mmol/L (98-107); Estimated GFR-MDRD Greater than 90; Globulin 3.5 g/dL (2.4-3.5); Glucose 75 mg/dL (70-105); Potassium 4.4 mmol/L (3.5-5.1); Protein, Total 6.7 g/dL (6.0-8.3); Sodium 134 mmol/L (136-145)
[2018-01-19 18:31] LABS: HBSAg Index 0.21 S/CO (0-0.99); Hep B Surf Ag Non-Reactive S/CO (NonReactive); Syphilis Antibody Nonreactive (Nonreactive); Syphilis Antibody Index 0.05 S/CO (<1.00 Non-Reactive)
[2018-01-19] MEDS ORDERED: L&D-Morphine 4 MG/ML VIAL SLOW IVP PRN (21:09)
[2018-01-19] MEDS ORDERED: Ondansetron HCl/PF 4 MG/2 ML Vial IVP PRN (21:09)
[2018-01-19] MEDS ORDERED: Naloxone HCl 0.4 mg/ml Vial IVP PRN ×2 (21:09)
[2018-01-19] MEDS ORDERED: diphenhydrAMINE 50 MG/ML VIAL IVP PRN (21:09)
[2018-01-19] MEDS ORDERED: Promethazine HCl 25 MG SUPP PR PRN (21:09)
[2018-01-19] MEDS ORDERED: Naloxone HCl 0.4 mg/ml Vial IV PRN (21:09)
[2018-01-19] MEDS ORDERED: Promethazine HCl 25 MG/ML VIAL IM PRN (21:09)
[2018-01-19] MEDS ORDERED: Eucerin (Mineral Oil/Petrolatum,White) 30 gm Jar TOP PRN (21:09)
[2018-01-19] MEDS ORDERED: HYDROmorphone 2 MG/ML VIAL SLOW IVP PRN (21:09)
[2018-01-19] MEDS ORDERED: Morphine PF 1 MG/ML SYR ONE (21:11)
[2018-01-19] MEDS ORDERED: PHENYLEPHRINE-NS 100 MCG/ML 10 ML SYRINGE ONE (21:12)
[2018-01-19] MEDS ORDERED: diphenhydrAMINE 50 MG/ML VIAL ONE (21:12)
[2018-01-19] MEDS ORDERED: Ketorolac Tromethamine 30 MG/ML VIAL ONE (21:12)
[2018-01-19] MEDS ORDERED: Bupivacaine 0.75% W/DEXTROSE 8.25% 2 ML AMP ONE (21:12)
[2018-01-19] MEDS ORDERED: Oxytocin 10 UNITS/ML VIAL ONE (21:12)
[2018-01-19] MEDS ORDERED: Lidocaine 1% PF 5 ML VIAL ONE (21:12)
[2018-01-19] MEDS ORDERED: Ondansetron PF 4 MG/2 ML Vial ONE (21:12)
[2018-01-19] MEDS ORDERED: Dexamethasone 4 mg/ml Vial ONE (21:12)
[2018-01-19] MEDS ORDERED: Ketorolac Tromethamine 30 MG/ML VIAL IVP SCH (21:15)
[2018-01-19] MEDS ORDERED: Communication Order-Pharmacy FS SCH (21:15)
[2018-01-19] MEDS ORDERED: ePHEDrine/0.9% NaCl/PF SYRINGE 50 mg/10 ml ONE (21:32)
[2018-01-19 22:09] LABS: Actual Bicarbonate (HCO3a) 25.7 mEq/L (22-28); Base Excess (BEa) -1.1 mEq/L (-2.0 to +3.0)
[2018-01-19] MEDS ORDERED: Misoprostol 200 MCG TAB PR PRN (22:36)
[2018-01-19] MEDS ORDERED: Simethicone Chewable 80 MG TAB PO PRN (22:36)
[2018-01-19] MEDS ORDERED: Bisacodyl 10 MG SUPP PR PRN (22:36)
[2018-01-19] MEDS ORDERED: HYDROcodone/Acetaminophen 5/325 mg Tablet PO PRN (22:36)
[2018-01-19] MEDS ORDERED: Adacel (T-DAP) 0.5 ML VIAL IM ONE (22:36)
[2018-01-19] MEDS ORDERED: Measles/Mumps/Rubella 10 MCG/0.5 ML VIAL SC ONE (22:36)
--- NOTE | 2018-01-19 22:44 | PDOC.OPDEL ---
OB Operative/Delivery Note Delivery Dr/Surgeon: Didi Tang DO Pre-Delivery Diagnosis: other (Severe pre-eclampsia 36 week gestation H/O LTCS x1, Desires RCS) Procedure/Post Delivery Dx: repeat low transverse CS Weeks gestation: 36 Anesthesia: spinal - Findings A Sex: female Weight: 5 lb 12 oz - 1 min: 8 - 5 min: 8 - Additional Findings/Plan Placenta delivered: manual removal findings: low transverse hysterotomy without extension, normal uterus, normal tubes, normal ovaries Estimated blood loss: QBL 325 cc Compilations/Other Findings: in cephalic presentation Clear AF Normal appearing placenta Thin adhesions from VIVI Post delivery plan: recovery in LICU
[2018-01-19] MEDS ORDERED: NS / Oxytocin 40 units/1000ml 1,000 ML IV SCH (22:45)
[2018-01-20] MEDS ORDERED: Meperidine HCl/PF 25 MG/ML VIAL ONE ×2 (00:16→01:38)
[2018-01-20] MEDS: Meperidine HCl/PF 25 MG/ML VIAL SLOW IVP PRN ×2 (00:19→01:40)
[2018-01-20] MEDS: Magnesium Sulfate 20 gm/500 ml 20 GM/500 ML BAG IVPB SCH ×2 (02:58→12:35)
[2018-01-20] MEDS: Ketorolac Tromethamine 30 MG/ML VIAL IVP PRN ×2 (06:29→13:51)
--- NOTE | 2018-01-20 07:31 | OP ---
DATE OF SERVICE: 01/19/2018 PRIMARY OB: Dr. Didi Tang The patient is a 27-year-old female who presented to the ER with elevated blood pressu res and diagnosis of chronic hypertension, superimposed preeclampsia. The patient proceeded with a r epeat as part of her management given the gestational age. For complete details, please refer to Dr. Tang's H&P and operative note. Dr. Tang was the primary surgeon and I functioned as the geriatric assistant.
[2018-01-20] MEDS ORDERED: Labetalol HCl 100 MG/20 ML VIAL SLOW IVP SCH (07:45)
--- NOTE | 2018-01-20 07:48 | PDOC.PP ---
Post Progress Note Post Day #: 1 Subjective: Pt reports being tired and hungry. Denies any preE sx. She denies any chest pain or SOB. Pt has been hypoxic overnight after her CS, requiring NC. PO intake tolerated: yes Flatus: no Ambulation: no Vital Signs (12 hours) Temp Pulse Resp BP BP Pulse Ox 01/20/18 00:00 92 L 01/19/18 23:05 86 181/88 H 01/19/18 22:45 98.3 F 92 18 141/69 H 95 Weight Weight 241 lb - Physical Examination Deviation from normal: HTN 160s/80s this morning Cardiovascular: no m/r/g Deviation from normal: tachycardic 110s Deviation from normal: possible crackles in lower lung bases; upper CTAB Abdominal: no distention, appropriately TTP Deviation from normal: dressing c/d/i Fundus firm & at: below umbilicus Extremities: negative homans (B) Neurological: no gross focal deficits Psychiatric: A&Ox3 Result Diagrams: 01/19/18 17:39 01/19/18 17:39 Additional Labs: Post Labs Blood Type O POSITIVE 01/19/18 17:39 Hep Bs Antigen Non-Reactive S/CO (NonReactive) 01/19/18 17:39 (1) delivery due to maternal disorder, delivered, current hospitalization Code(s): O99.89 - OTH DISEASES AND CONDITIONS COMPL PREG/CHLDBRTH; O82 - ENCOUNTER FOR DELIVERY WITHOUT INDICATION Status: Acute (2) Severe pre-eclampsia Code(s): O14.10 - SEVERE PRE-ECLAMPSIA, UNSPECIFIED TRIMESTER Status: Acute - Assessment/Plan PPD1 CXR ordered and IS due to hypoxia. Continue NC. IV Labetalol given. Restart oral Labetalol therapy today. Continue preE protocol and mag protocol. Mag level and CBC pending. Allow clear liquids. Continue post care
[2018-01-20 08:00] LABS: Hemoglobin 13.3 g/dL (12.0-16.0); Mean Corpuscular HGB CONC 33.8 g/dL (32.0-36.0); Mean Corpuscular Hemoglobin 31.5 pg (27.0-31.0); Mean Corpuscular Volume 93.2 fL (78.0-98.0); Mean Platelet Volume 9.1 fL (7.4-10.4); Platelet Count 248 thou/uL (130-400); RBC Distribution Width 12.7 % (11.5-14.5); Red Blood Cell (RBC) Count 4.22 mill/uL (4.20-5.40); White Blood Cell (WBC) Count 16.7 thou/uL (4.8-10.8)
--- NOTE | 2018-01-20 08:52 | OP ---
DATE OF PROCEDURE: 01/19/2018 PREOPERATIVE DIAGNOSES: 1. A 36-week 3-day intrauterine . 2. History of 1 prior low transverse delivery. 3. Chronic hypertension with superimposed preeclampsia features. POSTOPERATIVE DIAGNOSES: 1. A 36-week 3-day intrauterine . 2. History of 1 prior low transverse delivery. 3. Chronic hypertension with superimposed preeclampsia features. PROCEDURES: Repeat low transverse section. SURGEON: Didi Tang D.O. DIRECTOR OF SCOUT WORK: Dr. Alexei Solorzano QUANTITATIVE BLOOD LOSS: 325 cc IV FLUIDS: 1600 cc URINE OUTPUT: 300 cc FINDINGS: Moderate omental adhesions to the anterior abdominal wall and thin adhesions from the lower uterine segment to the bladder. A viable female in cephalic presentation with Apgars 8 and 8. Normal appearing placenta. Normal appearing uterus, fallopian tubes and ovaries bilaterally and clear amniotic fluid. INDICATIONS FOR THE PROCEDURE: Ms. Karli Paniagua is a 27-year-old G2, P1 at 36 weeks and 3 days who was transferred from clinic for evaluation of her hypertension. The patient had a history of chronic hypertension on oral labetalol. She presented to clinic with severe range blood pressures and was sent to Labor and Delivery for further evaluation. On initial evaluation, blood pressures were systolic 180s and 190s. The patient was given IV labetalol and anesthesia was notified. Plan for repeat when anesthesia was available. PROCEDURE IN DETAIL: The patient was brought to the operating room. A spinal placed and she was placed in supine position with a leftward tilt. A Ramirez catheter was placed. She was prepped and draped in a sterile fashion. She was given 2 grams of Ancef for surgical prophylaxis. An official timeout was performed. Anesthesia was assessed and proven to be adequate. A Pfannenstiel skin incision was made using the scalpel, removing the previous scar tissue. This was carried out underlying fascial layer using both the scalpel and the Bovie. The fascia was incised in the midline and then was extended bilaterally using Garcia scissors. The superior aspect of the fascial incision was grasped, elevated and dissected free from the underlying rectus abdominis muscles. Same was done to the inferior aspect of the fascial incision. The rectus abdominis muscles were bluntly . The peritoneum was entered. The scar tissue along the rectus abdominis muscles required sharp dissection. There were adhesions from the omentum to the peritoneum which required dissection using the Bovie. Once all the adhesions were taken down, the peritoneal incision was able to be extended bluntly. The Jai O retractor was then placed in the abdomen. A bladder flap was created, dissecting the previous scar tissue. A low transverse hysterotomy was made, the amniotic membranes were ruptured noting clear amniotic fluid. was delivered in cephalic presentation without difficulty. Infant's cord was clamped and cut and handed to the waiting Neonatology team. Cord segment and cord blood were obtained. The placenta was delivered spontaneously intact. The uterus was cleared of all clot and debris. Hysterotomy was closed in a running locking fashion creating hemostasis. There was a small area along the midline that required additional acjbuq-ad-bauqg stitch. The pelvis was irrigated and cleared of all clot and debris. The bilateral fallopian tubes and ovaries were evaluated and appeared normal. Jai O retractor was removed from the abdomen. The omentum, which was dissected off was evaluated and coagulated on the end for hemostasis. There was an area along the rectus abdominis muscle on the left side which also required coagulation for hemostasis. Again, the pelvis was irrigated and cleared of all clot and debris and hemostasis was achieved. The rectus abdominis muscles were reapproximated using single interrupted chromic sutures. The rectus abdominis muscles were evaluated and hemostatic. The fascia was closed in a running fashion using 0 PDS. The subcutaneous tissue was copiously irrigated, hemostatic. Subcutaneous tissue was closed using 3-0 Vicryl, and the skin was closed using 4-0 Monocryl and Dermabond. There were no complications. The patient tolerated the procedure well. All counts were correct x3. Mother will be transferred back to Labor and Delivery for continued magnesium. will be [facility] to the [facility]. [facility]
--- NOTE | 2018-01-20 09:05 | RAD ---
PORTABLE CHEST 1 VIEW: HISTORY: A 27-year-old female with a history of hypoxia and concern for pulmonary edema. FINDINGS: Marked right hemidiaphragm elevation is noted. There is some mild bilateral vascular congestion. He art size is within upper range of normal limits. It would be difficult to rule out some pleural or p arenchymal opacity changes in the right lung base given the marked right hemidiaphragm elevation. IMPRESSION: Marked right hemidiaphragm elevation. It would be difficult to totally exclude the possibility of so me minimal right lower lobe basilar pleural or parenchymal opacity changes in addition to the hemidia phragm elevation. Mild bilateral vascular congestion. Mild linear streaky changes in the left infra hilar region, probably some subsegmental atelectasis. POS: LUIS
[2018-01-20] MEDS: Labetalol 100 MG TAB PO SCH ×2 (09:18→21:07)
[2018-01-20] MEDS: Prenatal Vitamin 1 TAB PO SCH (09:19)
[2018-01-20] MEDS: Docusate Calcium (SURFAK) 240 MG CAP PO SCH ×2 (09:19→21:07)
[2018-01-20] MEDS: HYDROcodone/Acetaminophen 5/325 mg Tablet PO PRN ×4 (10:11→23:10)
[2018-01-20 12:19] LABS: ALT (SGPT) 17 U/L (8-55); AST (SGOT) 32 U/L (5-34); Albumin 2.9 g/dL (3.5-5.0); Alkaline Phosphatase 183 U/L (40-150); Anion Gap 12 mmol/L (10-20); BUN (Urea Nitrogen) 13 mg/dL (7.0-18.7); Bilirubin, Total 0.5 mg/dL (0.2-1.2); Calc. Creatinine Clearance 224 mL/min (70-130); Calcium 7.9 mg/dL (7.8-10.44); Carbon Dioxide 21 mmol/L (22-29); Chloride 101 mmol/L (98-107); Estimated GFR-MDRD Greater than 90; Globulin 3.2 g/dL (2.4-3.5); Glucose 102 mg/dL (70-105); Potassium 4.6 mmol/L (3.5-5.1); Protein, Total 6.1 g/dL (6.0-8.3); Sodium 129 mmol/L (136-145)
[2018-01-20] MEDS ORDERED: Ketorolac Tromethamine 30 MG/ML VIAL ONE (13:49)
--- NOTE | 2018-01-20 16:45 | PDOC.PP ---
Post Progress Note Post Day #: 1 Subjective: Doing well. No complaints. Denies preE sx. No SOB, CP, palpitations. PO intake tolerated: yes Flatus: no Ambulation: no Vital Signs (12 hours) Pulse BP 01/20/18 09:18 100 146/84 H 01/20/18 07:38 100 146/84 H Weight Weight 241 lb - Physical Examination Deviation from normal: HTN (most mild range, rare but not persistent severe) Cardiovascular: no m/r/g, RRR Respiratory: clear to auscultation bilaterally, non-labored breathing Abdominal: no distention, appropriately TTP Fundus firm & at: below umbilicus Extremities: negative homans (B) Neurological: no gross focal deficits Psychiatric: A&Ox3, normal affect Result Diagrams: 01/20/18 07:48 01/20/18 11:43 Additional Labs: Post Labs Blood Type O POSITIVE 01/19/18 17:39 Hep Bs Antigen Non-Reactive S/CO (NonReactive) 01/19/18 17:39 (1) delivery due to maternal disorder, delivered, current hospitalization Code(s): O99.89 - OTH DISEASES AND CONDITIONS COMPL PREG/CHLDBRTH; O82 - ENCOUNTER FOR DELIVERY WITHOUT INDICATION Status: Acute (2) Severe pre-eclampsia Code(s): O14.10 - SEVERE PRE-ECLAMPSIA, UNSPECIFIED TRIMESTER Status: Acute (3) Hypoxia Code(s): R09.02 - HYPOXEMIA Status: Acute (4) Hyponatremia Code(s): E87.1 - HYPO-OSMOLALITY AND HYPONATREMIA Status: Acute - Assessment/Plan CXR wnl. O2 sat improves when pt sitting up and talking in bed, no sx. Mag level not elevated. Complete mag protocol for 24 hr after delivery. Plan for d/c mag at 2200. Monitor VS. PO Labetalol and procardia for maintenance of BP. Repeat BMP to assess Na, will plan to stop fluids.
[2018-01-20 16:55] LABS: Anion Gap 12 mmol/L (10-20); BUN (Urea Nitrogen) 14 mg/dL (7.0-18.7); Calc. Creatinine Clearance 221 mL/min (70-130); Calcium 7.6 mg/dL (7.8-10.44); Carbon Dioxide 22 mmol/L (22-29); Chloride 102 mmol/L (98-107); Estimated GFR-MDRD Greater than 90; Glucose 106 mg/dL (70-105); Potassium 4.6 mmol/L (3.5-5.1); Sodium 131 mmol/L (136-145)
[2018-01-20] MEDS: NIFEdipine XL 30 MG TAB PO SCH (21:07)
[2018-01-21] MEDS: HYDROcodone/Acetaminophen 5/325 mg Tablet PO PRN ×5 (04:23→20:59)
--- NOTE | 2018-01-21 07:59 | PDOC.PP ---
Post Progress Note Post Day #: 1 Subjective: Doing well. Feels better after mag d/c'ed. No preE sx. Denies any SOB. Hypoxia resolved after mag d/c'ed and increased ambulation. PO intake tolerated: yes Flatus: yes Ambulation: yes Vital Signs (12 hours) Temp Pulse Resp BP BP BP Pulse Ox 01/21/18 07:32 98.5 F 91 20 161/91 H 95 01/21/18 04:00 98.4 F 95 20 145/69 H 96 01/21/18 00:30 98.0 F 102 H 20 119/68 96 01/20/18 23:19 98.2 F 83 20 123/58 L 95 01/20/18 22:18 98.1 F 101 H 20 151/72 H 91 L 01/20/18 21:07 99 187/96 H 01/20/18 20:00 91 L Weight Weight 241 lb - Physical Examination General: NAD Cardiovascular: no m/r/g, RRR Respiratory: clear to auscultation bilaterally, non-labored breathing Abdominal: + bowel sounds, no distention, appropriately TTP Fundus firm & at: below umbilicus Extremities: negative homans (B) Skin: CS incision dry & intact, no rash Neurological: no gross focal deficits Psychiatric: A&Ox3, normal affect Result Diagrams: 01/20/18 07:48 01/20/18 16:28 Additional Labs: Post Labs Blood Type O POSITIVE 01/19/18 17:39 Hep Bs Antigen Non-Reactive S/CO (NonReactive) 01/19/18 17:39 (1) delivery due to maternal disorder, delivered, current hospitalization Code(s): O99.89 - OTH DISEASES AND CONDITIONS COMPL PREG/CHLDBRTH; O82 - ENCOUNTER FOR DELIVERY WITHOUT INDICATION Status: Acute (2) Severe pre-eclampsia Code(s): O14.10 - SEVERE PRE-ECLAMPSIA, UNSPECIFIED TRIMESTER Status: Resolved (3) Hypoxia Code(s): R09.02 - HYPOXEMIA Status: Resolved (4) Hyponatremia Code(s): E87.1 - HYPO-OSMOLALITY AND HYPONATREMIA Status: Acute (5) Chronic hypertension Code(s): I10 - ESSENTIAL (PRIMARY) HYPERTENSION Status: Acute - Assessment/Plan PPD2 HTN this AM. Due to AM Labetalol PO dose. Continue Labetalol 300 mg BID and Procardia 30 XL QD. Monitor BPs with new regimen today. If controlled, possible d/c home tomorrow. Hyponatremia has improved with d/c IVF. Recheck today to assure still improving. Mild and asx
[2018-01-21] MEDS: Docusate Calcium (SURFAK) 240 MG CAP PO SCH ×2 (08:29→20:59)
[2018-01-21] MEDS: Labetalol 100 MG TAB PO SCH ×2 (08:29→20:59)
[2018-01-21] MEDS: Prenatal Vitamin 1 TAB PO SCH (08:29)
[2018-01-21 09:57] LABS: Anion Gap 14 mmol/L (10-20); BUN (Urea Nitrogen) 19 mg/dL (7.0-18.7); Calc. Creatinine Clearance 224 mL/min (70-130); Calcium 8.6 mg/dL (7.8-10.44); Carbon Dioxide 21 mmol/L (22-29); Chloride 106 mmol/L (98-107); Estimated GFR-MDRD Greater than 90; Glucose 105 mg/dL (70-105); Potassium 4.4 mmol/L (3.5-5.1); Sodium 137 mmol/L (136-145)
[2018-01-21] MEDS ORDERED: Lanolin Ointment 7 GM TUBE TOP PRN (20:08)
[2018-01-21] MEDS: NIFEdipine XL 30 MG TAB PO SCH (20:58)
[2018-01-22] MEDS: HYDROcodone/Acetaminophen 5/325 mg Tablet PO PRN ×5 (01:33→20:29)
--- NOTE | 2018-01-22 07:07 | PRG ---
DATE OF SERVICE: 01/22/2018 PRIMARY OB: Dr. Didi Tang. SUBJECTIVE: The patient is a 27-year-old female postop day #3 status post a repeat with pr eeclampsia with severe features. The patient reports this morning that she has been tolerating p.o., voiding on her own, having decreased lochia and good pain control. Her blood pressures in the last 24 hours showed two severe pressures, one in the morning at 7:00 and the other one in the evening amelia und 9:00. PHYSICAL EXAMINATION: VITAL SIGNS: Her blood pressure yesterday evening was 165/84, current blood pressure 138/83, tempera ture 98.8, pulse of 89, respiratory rate of 20. GENERAL: The patient appears to be in no acute distress. She is alert and oriented, cooperative and pleasant to interact with. HEENT: Head is normocephalic, atraumatic. ABDOMEN: Fundus is firm at the umbilicus -2. EXTREMITIES: Nontender, nonedematous. ASSESSMENT AND PLAN: The patient is a 27-year-old female postop day #3 status post a repeat C-sectio n with preeclampsia with severe features. Blood pressures have been fairly well controlled in the la st 24 hours and had 2 spikes into the severe range, which appears to be just prior to her b.i.d. medi cation administration. I will make some adjustments to her labetalol 200 mg 3 times a day instead of 300 mg twice a day. The patient will be monitored today and this evening if she continues to have g ood control of her blood pressures, she can go home with follow up with Dr. Tang in 1 week for bloo d pressure check.
[2018-01-22] MEDS: Prenatal Vitamin 1 TAB PO SCH (08:47)
[2018-01-22] MEDS: Labetalol 100 MG TAB PO SCH ×3 (08:47→20:29)
[2018-01-22] MEDS: Docusate Calcium (SURFAK) 240 MG CAP PO SCH ×2 (08:47→20:28)
--- NOTE | 2018-01-22 11:41 | PDOC.EVN ---
Event Note - Event Note Event Note: Pt seen and examined at bedside with Dr. Portillo. She is PP day 3 with continued labile pressures. She had a severe range BP this AM @ 170s/90s; however, recheck <160/110 5 minutes later. It was felt this was possibly cuff related and an unreliable BP per nursing staff. Pt has mild edema of b/l LE, she reports she does not feel edematous. Given her bp ranges with dual therapy we will give 40 mg oral lasix X1 and re-evaluate after lasix administration. Will re-evaluate later this afternoon and re-assess BP after lasix administration.
[2018-01-22] MEDS ORDERED: Furosemide 40 MG TAB PO SCH (11:45)
--- NOTE | 2018-01-22 12:03 | PRG ---
DATE OF SERVICE: 01/22/2018 TIME OF EVALUATION: Roughly 11:30 LOCATION: Room 334, on BLOOD PRESSURE CHECK In brief, this patient is status post nonlaboring and is now postop day #3. Dr. Solorzano, t his morning, adjusted the medication as follows: Labetalol 200 mg p.o. t.i.d. and Procardia [address] q.a.m. Dr. Sparrow evaluated the blood pressures at approximately 11:20 this morning and found that the blood pressure was around 170s/90s at around 8 this morning. We discussed this with the nursing staff and the nursing staff felt that it was a blood pressure cuff abnormality and was not real, as it was sandy cked again in 5 minutes and it was now 150s/90s. Blood pressure taken while we were in the room at [facility] was 148/90s. She is asymptomatic. She is on dual blood pressure medication. Physical examination reveals a patient who was and was in no acute distress. I evaluat ed for pitting edema in the lower extremities and there is really only trace edema. The patient stat es that she does not feel edematous. Although there is no overt gross pitting evidence of edema, the labile nature of her blood pressure d espite dual medication therapy, we have decided to give her 40 mg of Lasix x1 (p.o.). This 40 mg is equivalent to the 20 mg given IV, but as she does not have an IV, we will stick with the oral route. I discussed the rationale for giving the Lasix, which is to try to normalize blood pressure until her blood pressures become less varied. I also discussed with her that, as her third space fluid tends to mobilize back intravascularly, this can give some blood pressure instability. I also discussed wi th her that we will likely continue to monitor her blood pressures today and likely send her home alxei orrow if her blood pressures remained stable.
--- NOTE | 2018-01-22 16:13 | PDOC.EVN ---
Event Note - Event Note Event Note: BP follow up @ 1600: Last 2 BPs have been 130/80s to 130/70s
[2018-01-22] MEDS: NIFEdipine XL 30 MG TAB PO SCH (20:28)
[2018-01-23] MEDS: HYDROcodone/Acetaminophen 5/325 mg Tablet PO PRN ×3 (00:05→08:39)
--- NOTE | 2018-01-23 06:19 | PDOC.PP ---
Post Progress Note Post Day #: 4 Subjective: No headaches, no vision changes. States she feels BP changes from yesterday may be from pain from ambulation PO intake tolerated: yes Flatus: yes Ambulation: yes Vital Signs (12 hours) Temp Pulse Resp BP BP BP Pulse Ox 01/23/18 05:00 97.8 F 97 18 133/75 01/23/18 00:00 98.0 F 85 18 101/73 01/22/18 20:29 84 165/89 H 01/22/18 20:28 84 165/89 H 01/22/18 20:00 97.7 F 104 H 18 165/89 H 95 Weight Weight 241 lb BPs reviewed for last 24 hours - Physical Examination General: NAD Cardiovascular: no m/r/g Respiratory: clear to auscultation bilaterally Abdominal: + bowel sounds, no distention, appropriately TTP Extremities: negative homans (B) Skin: CS incision dry & intact (sutured and dermabonded) Neurological: no gross focal deficits Psychiatric: A&Ox3, normal affect Result Diagrams: 01/20/18 07:48 01/21/18 09:01 Additional Labs: Post Labs Blood Type O POSITIVE 01/19/18 17:39 Hep Bs Antigen Non-Reactive S/CO (NonReactive) 01/19/18 17:39 (1) Chronic hypertension Code(s): I10 - ESSENTIAL (PRIMARY) HYPERTENSION Status: Acute (2) delivery due to maternal disorder, delivered, current hospitalization Code(s): O99.89 - OTH DISEASES AND CONDITIONS COMPL PREG/CHLDBRTH; O82 - ENCOUNTER FOR DELIVERY WITHOUT INDICATION Status: Acute (3) Severe pre-eclampsia Code(s): O14.10 - SEVERE PRE-ECLAMPSIA, UNSPECIFIED TRIMESTER Status: Resolved - Assessment/Plan Plan: Currently, she is on labetalol 200mg TID and procardia 30mg QD. Due to sporadic BP elevations (x@) yesterday with SBHP over 160, I have discussed changing her labetalol to 400mg po BID today and seeing her response. I reviewed with her that I would prefer her to be dsch home AFTER BPs are under 160/100 for the 24 hour period. As she wants to go home, we have compromised to watch BPs today with possible DC home this PM if BPs better. She was on metoprolol prior to this by her report.
--- NOTE | 2018-01-23 06:31 | PDOC.EVN ---
Event Note - Event Note Event Note: DISCHARGE NOTE: Admit date: 01/19/18 Discharge Date: 01/23/18 Patient with CHTN and suspected superimposed preeclampsia underwent repeat CS on 01/19/18. She underwent MagSulfate for 24 hours PP. , had BP med adjustment with regime including labetalol and procardia oral. Incision was C/D/ I without signs of cellulitis or SSI. After dsch, recommended BP check in 48-72 hours. BP meds adjusted 01/23 AM with projected dsch homw on 01/23/18 PM.
--- NOTE | 2018-01-23 08:06 | PDOC.EVN ---
Event Note - Event Note Event Note: BP checks to follow. Plan D/W team
[2018-01-23] MEDS: Docusate Calcium (SURFAK) 240 MG CAP PO SCH (08:39)
[2018-01-23] MEDS: Prenatal Vitamin 1 TAB PO SCH (08:39)
[2018-01-23] MEDS ORDERED: Labetalol 100 MG TAB PO SCH (09:00)
[2018-01-23 12:47] VITALS: BP 120/64; TEMP 98.3
== END 2018-01-23 16:45 | disposition home or self-care (01) | DRG 787 ==
LOC: L&D/OP 16:58 → L&D-LIB 18:10 → L&D 01-20 02:52 → 3SW 01-20 23:40
PROVIDERS: ADMIT Obstetrics & Gynecology; ATTEND Obstetrics & Gynecology
PROC: 10D00Z1 Extraction of Products of Conception, Low, Open Approach (ICD-10-PCS; principal; 2018-01-19)
PROC: 4A1HXCZ Monitoring of Products of Conception, Cardiac Rate, External Approach (ICD-10-PCS; 2018-01-19)
DX: O14.14 Severe pre-eclampsia complicating childbirth (principal); E87.1 Hypo-osmolality and hyponatremia; O34.211 Maternal care for low transverse scar from previous cesarean delivery; Z3A.36 36 weeks gestation of pregnancy; Z37.0 Single live birth; O90.89 Other complications of the puerperium, not elsewhere classified; R09.02 Hypoxemia
CPT/HCPCS: 36415; 51702; 71045; 80048; 80053; 81003; 82805; 83735; 85027; 86780; 86850; 86900; 86901; 87340; 88307; 99285; J0702; J1100; J1200; J1885; J2001; J2175; J2274; J2405; J2590; J3475; J3490

== ENCOUNTER 2020-09-10 11:40 | Emergency (ER) | payer OTHER, SELFPAY ==
[2020-09-10] MEDS ORDERED: Ketorolac Tromethamine 30 MG/ML VIAL ONE (13:36)
[2020-09-10] MEDS ORDERED: Dexamethasone 10 MG/ML VIAL ONE (13:36)
== END 2020-09-10 14:36 | disposition home or self-care (01) ==
LOC: ERS 11:40
DX: J02.9 Acute pharyngitis, unspecified (principal)
CPT/HCPCS: 87081; 87430; 96372; 99283; J1100; J1885